=== PATIENT | male | born 1985 | race Two or more races ===

== ENCOUNTER 2024-05-13 07:49 | Outpatient (AMB) | payer BC, SELFPAY ==
--- NOTE | 2024-05-13 08:09 | MHC.PC.OV ---
Vital Signs 05/13/24 08:12 Height 5 ft 4 in Weight 187 lb 6 oz BMI 32.2 BP 110/78 Blood Pressure Location Lt brachial Position Sitting Pulse 75 Pulse Source Pulse Oximeter Temp 97.3 F Temp Source Temporal Artery Scan Pulse Oximetry (%) 97 Oxygen Delivery Method Room Air Intake Visit Reasons: establish care Fore[employer] L[employer] Required: No Accompanied by: Self / Same As Patient Allergies No Known Allergies [No Known Allergies*] Allergy (Verified 05/13/24 08:24) Medication List - Last Reconciled 05/13/24 by KEYUR Price No Known Home Meds Tobacco use date assessed: 05/13/24 Dental Screening Dental Screen Date: 05/13/24 Did you have a dental visit in the last 12 months?: No Did you have a dental problem in the last 6 months where you did not have access to dental care?: No Was dental information given to patient?: No HPI establish care HPI Details Previous PCP: Can not remember the name Last visit:8-9 years ago Last PE: Same as above Specialist: n/a Past medical: Anxiety, panic attack Family HX:father passed of cancer in November at the age of 62-reports started as a stomach cancer and metastasized, grand mother also from cancer, reports that she had breast cancer a couple years before and had surgery done then the cancer reappears all over. Problem: Patient reports about a week and half ago he was waiting in line at a grocery store and started sweating profusely. When he got home and his heart was racing and fell like he could not catch his breath. He checked his bp the next day and it was high 148/80s. Blood pressure wnl in office today panic attacks: started about when he was 16-17yo During these episodes he felt like everything was hazy and fuzzy, almost like he was having a outer body experience. anxiety: been trying breathing experience, interested speaking with someone. Patient is not interested in any medication management at this time. -will refer for counseling and order labs for follow up physical in 2 weeks the patient not have a physical years. PFSH Family History Other Stomach cancer Social History Housing: House Patient Tobacco Use Status: Current someday Tobacco user e-Cigarette/Vaping Use: Currently Using service: No Current occupational status: employed Current occupational exposures/hazards: No Cognitive needs: No Hearing needs: No Vision needs: No Questionnaire PHQ-9 Over the last 2 weeks, how often have you been bothered by any of the following problems? 1. Little interest or pleasure in doing things: not at all 2. Feeling down, depressed, or hopeless: not at all 3. Trouble falling or staying asleep, or sleeping too much: not at all 4. Feeling tired or having little energy: not at all 5. Poor appetite or overeating: not at all 6. Feeling bad about yourself - or that you are a failure or have let yourself or your family down: not at all 7. Trouble concentrating on things, such as reading the newspaper or watching television: several days 8. Moving or speaking so slowly that other people could have noticed. Or the opposite - being so fidgety or restless that you have been moving around a lot more than usual: not at all 9. Thoughts that you would be better off or of hurting yourself in some way: not at all Total score: 1 Depression Screening Interpretation: Negative Depression Screening Done: Yes 93249 - PHQ-9 Billing: Yes Source: Developed by Drs. Navdeep Luz, Dia Reynolds, Shelton Fleming and colleagues, with an educational vaishali from [employer]. Thrive Questionnaire Date Thrive assessed: 05/11/24 I am a: Patient What is your living situation today?: I have a place to live, but I am worried about losing it in the future Within the past 12 months, did the food you bought not last and you didn't have the money to get more?: Never true Within the past 12 months, did you worry whether your food would run out before you got money to buy more?: Never true Do you have trouble paying for medicines?: No Do you have trouble getting transportation to medical appointments?: No Do you have trouble paying your heating and electricity bill?: No Do you have trouble taking care of your child, family member or friend?: No Do you have trouble with day-to-day activities such as bathing, preparing meals, shopping, managing finances, etc.?: No Are you currently unemployed and looking for a job?: No Are you interested in more education?: Yes Please select the resources that you would like help with: Education Currently or been in a relationship where the following occur: No concerns reported THRIVE Score: 1 AUDIT C Alcohol Use Questionnaire (AUDIT-C) 1. How often do you have a drink containing alcohol?: Monthly or less 2. How many drinks containing alcohol do you have on a typical day when you are drinking?: 5 or 6 3. How often do you have six or more drinks on one occasion?: Less than monthly Total Score: 4 Score Reviewed/Action Taken: Yes FLORI-7 AMB Questionnaire FLORI-7 Date FLORI - 7 assessed: 05/13/24 Feeling nervous, anxious, or on edge: 1 = Several days Not being able to stop or control worryin = Several days Worrying too much about different things: 2 = More than half the days Trouble relaxin = Not at all Being so restless that it is hard to sit still: 0 = Not at all Becoming easily annoyed or irritable: 3 = Nearly every day Feeling afraid as if something awful might happen: 0 = Not at all Total FLORI-7 score (0-4 normal; 5-9 mild; 10-14 moderate; 15-21 severe): 7 Source: Developed by Drs. Navdeep Luz, Dia Reynolds, Shelton Fleming and colleagues, with an educational vaishali from [employer]. FLORI-7 Assessment Billing FLORI-7 Assessment Tool: FLORI-7 Assessment 41010 Review of Systems Const Details: Denies chills, Denies fatigue, Denies fever(s), Denies headache(s) and Denies weakness HEENT Denies change in vision, Denies dizziness, Denies headache(s), Denies hearing loss, Denies nasal congestion, Denies sinus pain, Denies sinus pressure and Denies sore throat Card Denies chest pain, Denies lightheadedness, Denies dyspnea and Denies other (palpitations) Resp Denies cough, Denies dyspnea and Denies wheezing GI Denies abdominal pain, Denies melena, Denies hematochezia, Denies change in bowel habits, Denies dyspepsia and Denies nausea Denies hematuria and Denies dysuria Musc Denies abnormal gait, Denies myalgias, Denies arthralgias, Denies numbness and Denies tingling Skin/Breast Denies rash, Denies unusual bruising and Denies wounds Neuro Denies abnormal gait, Denies dizziness, Denies headache(s), Denies memory loss, Denies numbness, Denies Sensory deficit (Neuro), Denies tingling and Denies weakness Psych Reports anxiety, reports depression and Denies memory loss Endo Denies cold intolerance, Denies fatigue, Denies heat intolerance, Denies polydipsia and Denies polyuria Winston/Lymph Denies easy bleeding and Denies easy bruising Aller/Immun Denies wheezing Physical exam (Primary Care) Vital Signs: Last Vital Signs Temp 97.3 F 05/13/24 08:12 Pulse 75 05/13/24 08:12 BP 110/78 05/13/24 08:12 Pulse Ox 97 05/13/24 08:12 Oxygen Delivery Method Room Air 05/13/24 08:12 BMI result Body Mass Index 32.2 Tobacco/Smoking Status: Tobacco use Status Tobacco use date assessed 05/13/24 05/13/24 08:11 Patient Tobacco Use Status Current someday Tobacco 05/13/24 08:17 e-Cigarette/Vaping Use Currently Using 05/13/24 08:17 PHQ-9: PHQ-9 Score PHQ-9: Total score 1 05/13/24 11:04 Depression Screening Interpretation: Negative Thrive Assessment: Date of Thrive Assessment Date Thrive assessed 05/11/24 05/13/24 08:11 Currently or been in a relationship where the following occur: No concerns reported Const Other: General: no acute distress, well developed, alert and awake Nutritional Appearance: well nourished Orientation/consciousness: patient oriented x3 HENMT Head: Yes normocephalic and Yes atraumatic Ears: hearing grossly normal bilaterally and TM's normal bilaterally General nose exam: Normal external nose present and Normal nares present Mouth: Normal oral and palatal mucosa present and moist mucous membranes Teeth and gingiva: dentition normal Throat: Yes oropharynx normal Eyes Pupils: Equal, round and reactive pupils present and Pupil accommodation reflex normal EOM: EOMs intact bilaterally Neck Neck: Yes normal visual inspection, Yes no lymphadenopathy and Yes trachea midline Thyroid: Thyroid normal Carotids: no bruits Lymphatic: no lymphadenopathy noted Chest Chest palpation & inspection: normal inspection of the chest Resp Effort & Inspection: normal respiratory effort Auscultation: clear to auscultation bilaterally Cardio Rate: regular rate Rhythm: regular rhythm Heart sounds: S1 normal heart sound present, S2 normal heart sound present, no gallops, no murmurs and no rubs GI Palpation (GI): Abdomen soft nontender to palpation Auscultation: normal bowel sounds General: Yes no CVA tenderness Back/Spine/Pelvis Back: no CVA tenderness Skin General: warm and dry. Normal skin color. Normal skin turgor Lesions: no lesions Rashes: no rashes Trauma: no lacerations or abrasions Wounds: no wounds Nails: normal Neuro General: patient oriented x3, gait normal Cranial nerves: Yes Equal, round and reactive pupils present Cognition (Neuro): normal cognition Gait exam (Neuro): Normal gait present Motor exam (neuro): 5/5 motor strength present throughout Extrem General: Yes normal to inspection, No edema and No calf tenderness Psych Appearance: grossly normal Affect: normal affect Attitude: cooperative Thought process: Normal thought process present Coding Level of Care Code Est Pt Level 3 (06888) Diagnoses Panic attack F41.0 Anxiety F41.9 Elevated blood pressure reading R03.0 Additional Codes FLORI-7 Assessment Billing - FLORI-7 Assessment Tool: FLORI-7 Assessment 66265 ([id number]) PHQ-9 - 62474 - PHQ-9 Billing: Yes ([id number]) Time Spent (min) 28 Assessment & Plan Assessment & Plan (1) Panic attack: Code(s): F41.0 - Panic disorder [episodic paroxysmal anxiety] Category: Medical Plan: Patient reports a history of panic attacks starting from age 16-17. Reports that his symptoms were different from previous symptoms. His usual symptoms were fussiness and haziness and feeling like he is having of body experience. Recently the patient had an episode of feeling sweaty, feeling like his heart was racing and he could not take a deep breath. This was short-lived. The patient is not interested in any medication management at this time will refer the patient to counseling therapy (2) Anxiety: Code(s): F41.9 - Anxiety disorder, unspecified Category: Medical Plan: Same as above (3) Elevated blood pressure reading: Code(s): R03.0 - Elevated blood-pressure reading, without diagnosis of hypertension Category: Medical Plan: Reports that he checks his blood pressure after he was feeling uneasy (suspected panic attack) The patient can not remember the exact numbers but to readings were 140s/80s His blood pressure in office today is within normal limits Reinforced a low-salt diet/and activity as tolerated will continue monitor Plan Patient to return in 2 weeks for an annual evaluation Labs ordered for patient to complete prior to appointment Orders: Orders Complete Blood Count Auto Diff 05/13/24. - Encounter for general adult medical examination without abnormal findings Comprehensive [place]. Panel Fast 05/13/24. - Encounter for general adult medical examination without abnormal findings TSH reflex Free T4 05/13/24. - Encounter for general adult medical examination without abnormal findings UA CC w/rflx Micro + Cult 05/13/24. - Encounter for general adult medical examination without abnormal findings Vitamin D 25-OH Total 05/13/24. - Encounter for general adult medical examination without abnormal findings Lipid Panel 05/13/24. - Encounter for general adult medical examination without abnormal findings Glucose Fasting 05/13/24 Z00. - Encounter for general adult medical examination without abnormal findings Referrals Counseling Referral F41.0 - Panic disorder [episodic paroxysmal anxiety], F41.9 - Anxiety disorder, unspecified
[2024-05-13 08:12] VITALS: BP 110/78; PULSE 75; TEMP 36.3; O2SAT 97; BMI 32.2
== END 2024-05-13 08:45 | disposition home or self-care (01) ==
DX: F41.0 Panic disorder [episodic paroxysmal anxiety] (principal); F41.9 Anxiety disorder, unspecified; R03.0 Elevated blood-pressure reading, without diagnosis of hypertension

== ENCOUNTER → 2024-05-13 07:49 | Outpatient (BNVA) | payer BC, SELFPAY | DX: F41.0 Panic disorder [episodic paroxysmal anxiety] (principal); F41.9 Anxiety disorder, unspecified; R03.0 Elevated blood-pressure reading, without diagnosis of hypertension | CPT/HCPCS: 96127 ==

== ENCOUNTER 2024-05-20 07:23 | Outpatient (REF) | payer BC, SELFPAY ==
[2024-05-20 07:37] LABS: MANUAL DIFF FLAG NO
[2024-05-20 07:52] LABS: Basophils Percent Auto 0.6 % (0-2); Eosinophils Percent Auto 0.7 % (0-4); Hematocrit 43.9 % (42.0-52.0); Hemoglobin 14.9 g/dl (14.0-18.0); Imm Gran Abs Auto 0.01 X10*3/uL (0.00-0.03); Imm Gran Pct Auto 0.2 % (0.0-0.4); Lymphocytes Absolute Auto 2.1 X10*3/uL (1.2-4.9); Lymphocytes Percent Auto 38.2 % (20-40); Mean Corpuscular HGB Conc 33.9 g/dl (31.0-36.0); Mean Corpuscular Hemoglobin 30.2 pg (27.0-33.0); Mean Corpuscular Volume 88.9 fL (80.0-98.0); Mean Platelet Volume 10.9 fL (9.4-12.4); Monocytes Absolute Auto 0.5 X10*3/uL (0.1-1.2); Monocytes Percent Auto 9.1 % (2-11); Neutrophils Absolute Auto 2.7 x10*3/uL (2.0-8.3); Neutrophils Percent Auto 51.2 % (45-73); Platelet Count 182 X10*3/uL (160-400); Red Blood Count 4.94 X10*6/uL (4.60-5.80); Red Cell Distribution Width 13.2 % (11.0-16.0); White Blood Count 5.4 X10*3/uL (4.8-10.8)
[2024-05-20 08:30] LABS: Alanine Aminotransferase 33 U/L (0-40); Albumin Level 4.3 g/dL (3.5-5.0); Alkaline Phosphatase 37 U/L (39-117); Anion Gap 11 (12-20); Aspartate Amino Transferase 22 U/L (5-37); Bilirubin Total 0.8 mg/dL (0.0-1.0); Blood Urea Nitrogen 13 mg/dL (9-16); Carbon Dioxide 28 mmol/L (22-29); Chloride 106 mmol/L (96-108); Cholesterol 157 mg/dL (<200); Estimated Glomerular Filt Rate > 60; Glucose Fasting 112 mg/dL (60-99); HDL Cholesterol 55 mg/dL (>40); LDL Cholesterol Calculated 87 mg/dL (<100); Potassium 3.5 mmol/L (3.3-5.1); Sodium 141 mmol/L (135-145); Total Protein 7.2 g/dL (6.5-8.0); Triglycerides 76 mg/dL (<150)
[2024-05-20 08:47] LABS: TSH reflex Free T4 2.32 uIU/mL (0.32-4.0); Vitamin D 25-OH Total 33.4 ng/mL (>30)
== END 2024-05-20 07:24 | disposition home or self-care (01) ==
LOC: HO.LAB 07:23
DX: Z00.00 Encounter for general adult medical examination without abnormal findings (principal)
CPT/HCPCS: 36415; 80053; 80061; 82306; 84443; 85025

== ENCOUNTER 2024-05-27 07:39 | Outpatient (AMB) | payer BC, SELFPAY ==
[2024-05-27 08:05] VITALS: BP 108/62; PULSE 80; O2SAT 98; BMI 31.8
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
== END 2024-05-27 08:56 | disposition home or self-care (01) ==
DX: Z23 Encounter for immunization (principal)

== ENCOUNTER → 2024-05-27 07:39 | Outpatient (BNVA) | payer BC, SELFPAY | DX: Z00.00 Encounter for general adult medical examination without abnormal findings (principal); Z23 Encounter for immunization; R03.0 Elevated blood-pressure reading, without diagnosis of hypertension; R07.9 Chest pain, unspecified; R00.2 Palpitations; F41.0 Panic disorder [episodic paroxysmal anxiety] | CPT/HCPCS: 90471; 90715; 96127 ==

== ENCOUNTER 2024-08-26 08:15 | Outpatient (AMB) | payer BC, SELFPAY ==
[2024-08-26 08:18] VITALS: BP 128/76; PULSE 88; TEMP 36.9; O2SAT 97; BMI 30.3
--- NOTE | 2024-08-26 08:18 | MHC.PC.OV ---
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 Operator Required: No Accompanied by: Self / Same As Patient Allergies No Known Allergies [No Known Allergies*] Allergy (Verified 08/26/24 08:30) Medication List - Last Reconciled 08/26/24 by KEYUR Price cholecalciferol (vitamin D3) 25 mcg PO DAILY ferrous sulfate (Feosol) 325 mg PO DAILY Tobacco use date assessed: 08/26/24 Dental Screening Dental Screen Date: 08/26/24 Did you have a dental visit in the last 12 months?: No Did you have a dental problem in the last 6 months where you did not have access to dental care?: No Was dental information given to patient?: No HPI anxiety/panic attack HPI Details The patient is a 38-year-old male with pmh: of anxiety, panic attack, heart palpitations presenting with issues of anxiety, noted as intermittent and occasionally situational due to life changes such as moving. He denies panic attacks but acknowledges the presence of anxiety that comes and goes. The current management plan includes weekly counseling sessions with (Lily Plummer @ [facility]) significant improvement noted. There is no need for medication at this time, as the patient is coping better and reports decreased severity of symptoms. Denies si/hi. SDM: follow up as needed. [facility] Medical History (Updated 05/27/24 @ 14:12 by KEYUR Price) Anxiety Elevated blood pressure reading Panic attack Surgical History No pertinent past surgical history Family History Father Prostate cancer Mother No problems noted. Sister No problems noted. Sister No problems noted. Sister No problems noted. 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 1. Little interest or pleasure in doing things: not at all 2. Feeling down, depressed, or hopeless: not at all 3. Trouble falling or staying asleep, or sleeping too much: not at all 4. Feeling tired or having little energy: not at all 5. Poor appetite or overeating: not at all 6. Feeling bad about yourself - or that you are a failure or have let yourself or your family down: not at all 7. Trouble concentrating on things, such as reading the newspaper or watching television: not at all 8. Moving or speaking so slowly that other people could have noticed. Or the opposite - being so fidgety or restless that you have been moving around a lot more than usual: not at all 9. Thoughts that you would be better off or of hurting yourself in some way: not at all Total score: 0 Depression Screening Interpretation: Negative Depression Screening Done: Yes Source: Developed by Drs. Navdeep Luz, Dia Reynolds, Shelton Fleming and colleagues, with an educational vaishali from [employer]. Thrive Questionnaire Date Thrive assessed: 08/26/24 I am a: Patient What is your living situation today?: I have a place to live, but I am worried about losing it in the future Within the past 12 months, did the food you bought not last and you didn't have the money to get more?: Never true Within the past 12 months, did you worry whether your food would run out before you got money to buy more?: Never true Do you have trouble paying for medicines?: No Do you have trouble getting transportation to medical appointments?: No Do you have trouble paying your heating and electricity bill?: No Do you have trouble taking care of your child, family member or friend?: No Do you have trouble with day-to-day activities such as bathing, preparing meals, shopping, managing finances, etc.?: No Are you currently unemployed and looking for a job?: No Are you interested in more education?: Yes Please select the resources that you would like help with: Education Currently or been in a relationship where the following occur: No concerns reported THRIVE Score: 1 AUDIT C Alcohol Use Questionnaire (AUDIT-C) 1. How often do you have a drink containing alcohol?: Never 3. How often do you have six or more drinks on one occasion?: Never Total Score: 0 Score Reviewed/Action Taken: No FLORI-7 AMB Questionnaire FLORI-7 Date FLORI - 7 assessed: 08/26/24 Feeling nervous, anxious, or on edge: 3 = Nearly every day Not being able to stop or control worryin = More than half the days Worrying too much about different things: 2 = More than half the days Trouble relaxin = Several days Being so restless that it is hard to sit still: 0 = Not at all Becoming easily annoyed or irritable: 1 = Several days Feeling afraid as if something awful might happen: 0 = Not at all Total FLORI-7 score (0-4 normal; 5-9 mild; 10-14 moderate; 15-21 severe): 9 Source: Developed by Drs. Navdeep Luz, Dia Reynolds, Shelton Fleming and colleagues, with an educational vaishali from [employer]. Review of Systems Const Denies headache(s) Eyes Denies loss of vision ENT Denies headache(s) and Denies sore throat Card Denies chest pain, Denies leg edema and Denies lightheadedness Resp Denies cough, Denies hemoptysis and Denies wheezing Neuro Denies Abnormal speech present, Denies behavioral changes, Denies headache(s) and Denies loss of vision Psych Reports anxiety (Improved since therapy and is at a good place right now), Denies behavioral changes, Denies depression and Denies panic attacks Winston/Lymph Denies easy bleeding and Denies easy bruising Aller/Immun Denies wheezing Physical exam (Primary Care) Vital Signs: Last Vital Signs Temp 98.5 F 08/26/24 08:18 Pulse 88 08/26/24 08:18 BP 128/76 08/26/24 08:18 Pulse Ox 97 08/26/24 08:18 Oxygen Delivery Method Room Air 08/26/24 08:18 BMI result Body Mass Index 30.3 Tobacco/Smoking Status: Tobacco use Status Tobacco use date assessed 08/26/24 08/26/24 08:27 Patient Tobacco Use Status Former Tobacco user 08/26/24 08:27 Tobacco use type Cigarette 08/26/24 08:27 e-Cigarette/Vaping Use Currently Using 08/26/24 08:27 PHQ-9: PHQ-9 Score PHQ-9: Total score 0 08/26/24 08:33 Depression Screening Interpretation: Negative Thrive Assessment: Date of Thrive Assessment Date Thrive assessed 08/26/24 08/26/24 08:27 Currently or been in a relationship where the following occur: No concerns reported Const General: healthy appearing, no acute distress, alert and awake Nutritional Appearance: well nourished Orientation/consciousness: oriented to person, oriented to place and oriented to time HENMT Ears: external ears normal General nose exam: Normal external nose present Eyes Conjunctivae: conjunctivae normal Sclerae: sclerae normal Pupils: Equal, round and reactive pupils present Neck Neck: Yes no lymphadenopathy Thyroid: Thyroid normal Carotids: no bruits Resp Effort & Inspection: normal respiratory effort and not tachypneic Auscultation: no crackles, no rales, no rhonchi and no wheezes Cardio Rate: regular rate Rhythm: regular rhythm Heart sounds: no murmurs and normal S1 and S2 Neuro General: oriented to person, oriented to place and oriented to time Cranial nerves: Yes Equal, round and reactive pupils present Speech: No Abnormal speech present Gait exam (Neuro): Normal gait present Psych Mental Status: mental status grossly normal Speech and movement: Normal speech and movement present Affect: normal affect Attitude: cooperative Thought process: Normal thought process present Coding Level of Care Code Est Pt Level 3 (57583) Diagnoses Anxiety F41.9 Panic attack F41.0 Time Spent (min) 31 Assessment & Plan Assessment & Plan (1) Anxiety: Code(s): F41.9 - Anxiety disorder, unspecified Category: Medical (2) Panic attack: Code(s): F41.0 - Panic disorder [episodic paroxysmal anxiety] Category: Medical Plan The patient will continue with weekly therapy sessions at [facility], which have been effective in managing his generalized anxiety disorder symptoms. The need for medication will be reassessed only if symptoms become more severe or frequent. It is important to maintain open communication and assess the situation in future follow-ups, with flexibility regarding the scheduling of routine evaluations. Patient was informed and verbally consented to the use of an ambient scribe for clinic note documentation during this visit. Patient Instructions: - Continue with weekly therapy sessions. - Contact me if anxiety becomes more frequent or intense. - Report any changes in symptoms or if current management is not sufficient.
== END 2024-08-26 08:40 | disposition home or self-care (01) ==
LOC: HO.HMCH 08:15
DX: F41.9 Anxiety disorder, unspecified (principal); F41.0 Panic disorder [episodic paroxysmal anxiety]

== ENCOUNTER → 2024-08-26 08:15 | Outpatient (BNVA) | payer BC, SELFPAY | DX: Z13.89 Encounter for screening for other disorder (principal) ==